=== PATIENT | male | born 1975 | race African-American/Black ===

== ENCOUNTER 2023-12-12 15:52 | Emergency (ER) | payer BC, OTHER ==
[~2023-12-12] VITALS: Ht 185.4 cm; Wt 108.0 kg
[2023-12-12 18:40] VITALS: BP 122/85; PULSE 85; RESP 18; TEMP 98.3; O2SAT 96
[2023-12-12] MEDS ORDERED: cefTRIAXone SOD 1,000 MG VL IM ONE (19:30)
[2023-12-12] MEDS ORDERED: KETOROLAC TROMETH 60MG/2ML VIAL IM ONE (19:30)
[2023-12-12] MEDS ORDERED: AMOX875T4 PO (19:36)
[2023-12-12] MEDS ORDERED: IBUP-1456 PO (19:36)
[2023-12-12] MEDS ORDERED: ACE3T PO (20:00)
== END 2023-12-12 20:04 | disposition home or self-care (01) ==
LOC: ER 15:52
DX: L05.91 Pilonidal cyst without abscess (principal); Z98.890 Other specified postprocedural states; Z79.899 Other long term (current) drug therapy; Z91.013 Allergy to seafood
CPT/HCPCS: 96372; 99284; J0696; J1885